=== PATIENT | male | born 1940 | race Caucasian/White ===

== ENCOUNTER 2016-06-23 07:42 | Day surgery (SDC) | payer OTHER ==
--- NOTE | ~2016-06-23 | OP ---
Record Of Operation [facility] [address] [place]. [address] NAME: NEO REILLY : 38 STATUS : [facility]#: [id number] AGE: 76 ADM/REG DATE : 06/23/16 MR#: [id number] REPORT SERV DATE: 06/23/16 DICTATED BY: Tulio SEALS DATE: 06/23/16 REPORT STATUS : Draft TRANSCRIBED BY: MODL DATE: 06/23/16 DATE OF PROCEDURE: 06/23/2016 PREOPERATIVE DIAGNOSIS: Recurrent transitional cell carcinoma of the bladder. POSTOPERATIVE DIAGNOSIS: Recurrent transitional cell carcinoma of the bladder. PROCEDURE: Cystoscopy, TURBT (greater than 5 cm lesion), extensive fulguration, bladder instillation with mitomycin. SURGEON: Tulio Seals M.D. ANESTHESIA: General. COMPLICATIONS: None. DRAINS: A 22-Djiboutian two-way Small catheter. BRIEF HISTORY: Mr. Reilly is a 76-year-old white male with a history of recurrent transitional cell carcinoma of the bladder. 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 I did not see ara tumor at that time. There was no evidence of recurrent high-grade disease. Since this did not respond to BCG, he is here for resection if appropriate and fulguration of any abnormal areas in the bladder. The risks of bleeding, infection, anesthesia, injury to adjacent organs, need for subsequent therapy, inability to eradicate disease, etc., all discussed. There were no unanswered questions. DESCRIPTION OF PROCEDURE: Under excellent general anesthesia, the patient was prepped and draped in standard lithotomy position. Cystoscopy was performed with the 30 and 70-degree lenses. It showed a normal anterior urethra. Posterior urethra showed some trilobar BPH. Inspection of the bladder revealed evidence of recent biopsies and a normal left orifice. His right orifice is nonvisualized, and he is status post right radical nephrectomy for renal cell carcinoma in the remote past. Again, I did not see ara tumor formation, but there was enough bolus change and thickening that I inserted the 26-Djiboutian resectoscope. I resected the area that would represent the right hemitrigone and bladder base and sent that as specimen #1 and then another area of tumor-like formation on the left bladder wall was sent as specimen #2. In aggregate, this was over 5 cm in dimension. I then inserted the small roller ball and thoroughly fulgurated the resected areas as well as any area of erythema. It was hard to access the bladder dome, but that was thoroughly fulgurated as well. I saw no evidence of residual erythema and had no good evidence for deep resection. I inserted a 22-Djiboutian two-way Small catheter and planned to install postoperative mitomycin. I plan to discharge Mr. Reilly as an outpatient with the following instructions. DISCHARGE INSTRUCTIONS: 1. Home today after mitomycin with his Small catheter. Record Of Operation [address] [place]. [address] NAME: NEO REILLY : 38 STATUS : [facility]#: [id number] AGE: 76 ADM/REG DATE : 06/23/16 MR#: [id number] REPORT SERV DATE: 06/23/16 DICTATED BY: Tulio SEALS DATE: 06/23/16 REPORT STATUS : Draft TRANSCRIBED BY: LOYDA DATE: 06/23/16 2. Remove catheter at home tomorrow. 3. Pyridium 200 mg one p.o. t.i.d. p.r.n. bladder pain #15. 4. Follow up in one week for review pathology and consider further therapy as indicated. VERNA/LOYDA Tulio Seals M.D. / [id number] CC: Alyssa Miller M.D.
[~2016-06-23 07:42] MED LIST: ASAB PO; GLUCOPHAGE1000 MG PO; GLUCOTROL5; GLUCXL5 PO; INDAPAMIDE1.25 MG PO; JANUMET1 TA1 PO; MAGOX4 PO; MYRBETRIQ25 MG PO; TOUJEO SQ; VASOTEC20 MG PO; ZOCOR40 PO
[2016-06-23 08:19] LABS: HEMATOCRIT 42.8 % (40.0-51.0); HEMOGLOBIN 14.2 g/dL (13.6-17.8)
[2016-06-23 08:25] LABS: BUN (BLOOD UREA NITROGEN) 15 MG/DL (6-23); CALCIUM, SERUM 8.9 MG/DL (8.5-10.4); CHLORIDE, SERUM 111 MMOL/L (96-112); CREATININE 1.27 MG/DL (0.70-1.30); GFR AFRICAN AMERICAN 63 ML/MIN (>=60); GFR NON AFRICAN AMERICAN 54 ML/MIN (>=60); POTASSIUM, SERUM 4.1 MMOL/L (3.5-5.3); SODIUM, SERUM 146 MMOL/L (135-148)
[2016-06-23 08:29] LABS: CO2 (CARBON DIOXIDE) 29 MMOL/L (24-34); GLUCOSE, SERUM 112 MG/DL (60-99)
[2016-10-22] MEDS ORDERED: TOPXL25 PO (13:37)
[2016-10-22] MEDS ORDERED: VITAMIN B-121000 MC1 SL (13:41)
[2016-10-22] MEDS ORDERED: VITAMIN B12 (13:43)
[2016-10-22] MEDS ORDERED: PRILO PO (14:08)
[2016-10-22] MEDS ORDERED: [UNRECOGNIZED DRUG - OTHER] (14:10)
[2016-10-22] MEDS ORDERED: MITOMYCIN (14:11)
[2016-10-22] MEDS ORDERED: [UNRECOGNIZED DRUG - OTHER] (14:11)
== END 2016-06-23 14:41 | disposition home or self-care (01) ==
LOC: SDC 07:42
PROC: 0T5B8ZZ Destruction of Bladder, Via Natural or Artificial Opening Endoscopic (ICD-10-PCS; principal; 2016-06-23 10:15)
DX: N32.89 Other specified disorders of bladder (principal); I10 Essential (primary) hypertension; E78.5 Hyperlipidemia, unspecified; E78.00 Pure hypercholesterolemia, unspecified; K21.9 Gastro-esophageal reflux disease without esophagitis; E11.9 Type 2 diabetes mellitus without complications; Z98.890 Other specified postprocedural states; Z90.49 Acquired absence of other specified parts of digestive tract; Z85.51 Personal history of malignant neoplasm of bladder; Z79.899 Other long term (current) drug therapy; Z87.891 Personal history of nicotine dependence; Z87.442 Personal history of urinary calculi; Z85.528 Personal history of other malignant neoplasm of kidney
CPT/HCPCS: 80048; 82962; 85014; 85018; 88307; A9270-GY; J0330; J2250; J3010; J9280